=== PATIENT | male | born 1985 | race Hispanic/Latino ===

== ENCOUNTER 2016-12-12 16:25 | Emergency (ER) | payer OTHER, MEDICAID ==
[2016-12-12 16:54] VITALS: BMI 22.4
[2016-12-12 16:58] VITALS: BP 136/86; PULSE 72; RESP 20; TEMP 98.7; O2SAT 100
[2016-12-12] MEDS ORDERED: Lidocaine 1% Inj (20ml) INFIL ONE (17:43)
[2016-12-12] MEDS ORDERED: Bacitracin 500 Units/gm Oint Foilpak UD TOP ONE (17:44)
[2016-12-12] MEDS ORDERED: Bacitracin 500 Units/gm Oint Foilpak UD ONE (17:46)
[2016-12-12] MEDS ORDERED: Lidocaine 1% Inj (20ml) ONE (17:46)
--- NOTE | 2016-12-12 17:47 | C.PDOC ---
History Of Present Illness 31 year old male who presents to the ER with a complaint of a laceration to the left medial hand proximal to the pinky caused by a piece of glass sticking out of a garbage bag. Patient is right hand dominant; denies numbness, tingling, or weakness. Time Seen by Provider: 12/12/16 17:06 Chief Complaint (Nursing): Abnormal Skin Integrity History Per: Patient History/Exam Limitations: no limitations Onset/Duration Of Symptoms: Hrs Current Symptoms Are (Timing): Still Present Location Of Injury: Left: Hand Quality Of Symptoms: Other (Laceration) Recent travel outside of the [place]: No Past Medical History Reviewed: Historical Data, Nursing Documentation, Vital Signs Vital Signs: Last Vital Signs Temp 98.7 F 12/12/16 16:54 Pulse 72 12/12/16 16:54 Resp 20 12/12/16 16:54 BP 136/86 12/12/16 16:54 Pulse Ox 100 12/16/16 12:27 - Medical History PMH: No Chronic Diseases Surgical History: No Surg Hx Family History: States: Unknown Family Hx - Social History Hx Alcohol Use: No Hx Substance Use: Yes - Immunization History Hx Tetanus Toxoid Vaccination: No Hx Influenza Vaccination: No Hx Pneumococcal Vaccination: No Review Of Systems Constitutional: Negative for: Fever Skin: Positive for: Other (Laceration) Neurological: Negative for: Weakness, Numbness Physical Exam - Physical Exam Appears: Non-toxic Skin: Warm, Dry Head: Atraumatic, Normacephalic Oral Mucosa: Moist Extremity: Normal ROM (of all fingers), Capillary Refill (Good), Other (2cm laceration medial hand proximal to pinky. Sensation intact, good strength against resistance.) Pulses: Left Radial: Normal, Right Radial: Normal Neurological/Psych: Oriented x3, Normal Speech, Normal Cognition ED Course And Treatment O2 Sat by Pulse Oximetry: 100 (Room air) Pulse Ox Interpretation: Normal Laceration - Laceration Repair Left Hand Wound Length (In cm): 2 cm Description Of Wound: Linear Wound Cleansed With: Betadine, Sterile Saline Anesthesia: Lidocaine 1% Wound Examination: Irrigated With Saline, No FB With Wound Exploration, No Tendon Injury With Wound Exploration Wound Closure: Suture (Three 4-0 Ethylene) Wound Complexity: Simple Medical Decision Making Medical Decision Making: Plan: Bacitracin Laceration repair Disposition Counseled Patient/Family Regarding: Diagnosis, Need For Followup - Disposition Disposition: HOME/ ROUTINE Disposition Time: 18:24 Condition: IMPROVED Additional Instructions: Keep clean and dry. Return to Er for any signs of infections. Suture removal in 10 days. Tylenol or Motrin for pain. Instructions: Care For Your Stitches (ED), Laceration (ED) Forms: [facility] (Kosovan), General Discharge Instructions - Clinical Impression Clinical Impression: Laceration of left hand without complication, excluding fingers - Scribe Statement The provider has reviewed the documentation as recorded by the Scribfarzana Shelby All medical record entries made by the Annaibfarzana were at my direction and personally dictated by me. I have reviewed the chart and agree that the record accurately reflects my personal performance of the history, physical exam, medical decision making, and the department course for this patient. I have also personally directed, reviewed, and agree with the discharge instructions and disposition.
== END 2016-12-12 18:40 | disposition home or self-care (01) ==
LOC: C.ER 16:25
DX: S61.412A Laceration without foreign body of left hand, initial encounter (principal); W25.XXXA Contact with sharp glass, initial encounter; Y93.89 Activity, other specified; Y92.9 Unspecified place or not applicable